=== PATIENT | female | born 1990 | race Caucasian/White ===

== ENCOUNTER → 2016-10-26 | Outpatient (CLI) | payer BC, OTHER ==
[~2016-10-26] VITALS: Ht 162.6 cm; Wt 72.2 kg
[~2016-10-26] MED LIST: ESKALITH CR450 MG PO; FLEXERIL PO; HYDROCODONE-AP1 EAC6 PO; MOBIC15 MG PO; MULTIVITAMINS1 EAC6 PO; NEURONTIN 300300 M1 PO; NEXIUM40 MG PO; TRAMADOL 50 MG50 MG PO; TRAZODONE HCL50 MG; TYLOX 5-500 MG1 EACH PO; VIIBRYD20 MG PO; VIIBRYD40 MG PO; VISTARIL 25 MG25 M1 PO; VITAMIN D3400 UNIT PO; valium PO
--- NOTE | ~2016-10-26 | HPC ---
[facility] [place] [address] PAIN MANAGEMENT CONSULTATION Name: JANN CORNELL Room #: REG MAY Stas.#: [id number] Admission: 10/26/16 Attend Phys: Sergio Conn MD Discharge: Date of : 88 Report #: [id number] THIS REPORT FOR: //name// CC: Benson Murphy DO Sergio Conn DATE OF SERVICE: 10/26/2016 CHIEF COMPLAINT: Low back pain radiating into the left hip and leg. The patient is a 26-year-old who presents today with fibromyalgia, but also pain consistent with radiculopathy. She has had an epidural injection in the past. It helped for about a week, but the pain has been now ongoing for quite some time. She does not have an MRI. She says that the pain is chronic, achy and across her back, radiates through the hip and down into the leg. Occasionally, has numbness. The patient also has diffuse myofascial pain and has been diagnosed in the past with fibromyalgia. She has psychological issues with bipolar disorder and takes a number of medications. She does not actively exercise. MEDICATIONS: Nexium, Desyrel, tramadol, vitamin D3, multivitamins, hydrocodone 5/325 p.r.n., cyclobenzaprine p.r.n. She does not use these latter 2 very often. ALLERGIES: GEODON, PENICILLIN and MORPHINE. PHYSICAL EXAMINATION: Pleasant 26-year-old. Blood pressure 118/71, heart rate 94. BMI is 27.3. She has numerous bruises around her neck, which were unusual in shape. These apparently were given to her by her friend. She has diffuse myofascial pain in the upper and lower extremities consistent with fibromyalgia. She has pain across her low back with reduced range of motion in flexion and extension due to discomfort. She has straight leg raising discomfort, radiates pain into the left hip. Sensation is normal. Strength is normal. Deep tendon reflexes are diminished at the ankles bilaterally. IMPRESSION AND PLAN: Lumbar radiculopathy. She has had epidural injections before, but we have no diagnostic imaging. This is her second time through this dating back to 2016 in the same distribution. I felt that we should go forward with some diagnostic testing and I have ordered an MRI. We will see her back [address] [address] PAIN MANAGEMENT CONSULTATION Name: JANN CORNELL Sheila Room #: REG [facility] Rebeca#: [id number] Admission: 10/26/16 Attend Phys: Sergio Conn MD Discharge: Date of : 88 Report #: [id number] after results of the tests have been received. Appointment has been made for 2 weeks. By: [id number] Sergio Conn MD /nt
[2016-10-26 14:22] VITALS: BP 118/71
== END ==
LOC: PAIN 07:09
DX: M54.16 Radiculopathy, lumbar region (principal); M79.7 Fibromyalgia; Z88.0 Allergy status to penicillin; Z88.5 Allergy status to narcotic agent

== ENCOUNTER → 2016-11-01 | Outpatient (CLI) | payer BC, OTHER | LOC: MRI 08:39 | DX: M47.896 Other spondylosis, lumbar region (principal); M54.16 Radiculopathy, lumbar region; M25.559 Pain in unspecified hip ==

== ENCOUNTER → 2016-11-16 | Outpatient (CLI) | payer BC, OTHER ==
[~2016-11-16] VITALS: Ht 162.6 cm; Wt 72.1 kg
[2016-11-16 14:12] VITALS: BP 132/87
== END | disposition home or self-care (01) ==
LOC: PAIN 06:47
DX: M79.1 Myalgia (principal); G89.29 Other chronic pain; M54.16 Radiculopathy, lumbar region; Z88.0 Allergy status to penicillin; Z88.8 Allergy status to other drugs, medicaments and biological substances